=== PATIENT | male | born 1975 | race Caucasian/White ===

== ENCOUNTER 2022-03-07 20:24 | Outpatient (CLI) | payer BC, SELFPAY ==
--- NOTE | 2022-03-13 10:03 | W.PM.SLEEP ---
Sleep Study Details Details Interpreting Provider: Messi Walker MD Date of Sleep Study: 03/07/22 Sleep Study Details: STUDY TYPE:? Hospital split night study ? BMI:? 37.7 ORDERING PROVIDER:? marianna INDICATION:? Concerns about sleep apnea ? SLEEP SUMMARY:? Sleep time 3:40 a.m. 8.5, efficiency 83.9, latency 5, REM latency 57, arousal index 26.7 RESPIRATORY SUMMARY:? PERIODIC LIMB MOVEMENTS OF SLEEP:? Mean oxygen awake 94 Mean oxygen asleep 92 Low oxygen 83 1.4 minutes oxygen between 80 and 88% AHI 18.6, RDI 26.8 Supine AHI 29.9, supine REM AHI 17.8 Nonsupine AHI 0.8 nonsupine RDI 5.1 CPAP titration was attempted. At pressure of 5 REM sleep was seen but are DI remained elevated. Pressure of 60 not included REM sleep. This would be considered unsuccessful titration. No central apneas were noted CARDIAC:? EKG awake 74 asleep 70, no arrhythmias noted IMPRESSION:? Moderate obstructive sleep apnea with supine position dependency. CPAP titration was incomplete. RECOMMENDATION: AutoSet CPAP at a pressure of 5-17 with close follow-up. Weight loss is also recommended. Alternative treatments such as dental appliance could be considered if CPAP is not tolerated.
== END 2022-03-07 20:25 | disposition home or self-care (01) ==
PROVIDERS: PCP Family Medicine; Visit Provider Family Medicine
DX: G47.33 Obstructive sleep apnea (adult) (pediatric) (principal)
CPT/HCPCS: 95811

== ENCOUNTER 2022-03-30 09:24 | Outpatient (CLI) | payer BC, SELFPAY ==
[2022-03-30 12:26] LABS: Albumin* 4.3 g/dL (3.3-5.0)
[2022-03-30 12:29] LABS: Aspartate Amino Transferase* 22 U/L (12-35); Bilirubin Direct* 0.2 mg/dL (0.0-0.5); Bilirubin Total* 0.8 mg/dL (0.1-1.5); Cholesterol* 146 mg/dL (90-199); HDL Cholesterol* 35 mg/dL (>=40); LDL Cholesterol Calculated 88 mg/dL (<100); Total Protein* 7.1 g/dL (6.0-8.3); Triglycerides* 116 mg/dL (40-149)
[2022-03-30 12:30] LABS: Alanine Aminotransferase* 17 U/L (4-50); Alkaline Phosphatase* 87 U/L (40-150)
== END 2022-03-30 09:25 | disposition home or self-care (01) ==
PROVIDERS: PCP Family Medicine; Visit Provider Family Medicine
DX: E78.00 Pure hypercholesterolemia, unspecified (principal); E66.9 Obesity, unspecified
CPT/HCPCS: 80061; 80076

== ENCOUNTER 2023-03-29 21:45 | Outpatient (REF) | payer BC, SELFPAY ==
[2023-03-29 22:28] LABS: Chloride* 103 mmol/L (96-114); Sodium* 138 mmol/L (135-149)
[2023-03-29 22:31] LABS: Blood Urea Nitrogen* 22 mg/dL (5-24); Carbon Dioxide* 25 mmol/L (20-32); Estimated Glomerular Filt Rate 93 ml/min; Glucose* 109 mg/dL (60-115)
[2023-03-29 22:32] LABS: Calcium* 9.4 mg/dL (8.4-10.6)
== END 2023-03-29 21:46 | disposition home or self-care (01) ==
LOC: NPINS 21:45
PROVIDERS: PCP Family Medicine; Visit Provider Internal Medicine
DX: E78.5 Hyperlipidemia, unspecified (principal)
CPT/HCPCS: 80048

== ENCOUNTER 2024-02-10 08:33 | Outpatient (CLI) | payer BC, OTHER, SELFPAY | END 2024-02-10 08:34 | disposition home or self-care (01) | LOC: NFLDREF 02-13 07:09 | PROVIDERS: PCP Family Medicine; Referring Provider Family Medicine; Visit Provider Family Medicine | DX: E78.00 Pure hypercholesterolemia, unspecified (principal); L64.9 Androgenic alopecia, unspecified; Z12.5 Encounter for screening for malignant neoplasm of prostate; E66.9 Obesity, unspecified | CPT/HCPCS: 80053; 80061; 84443; G0103 ==

== ENCOUNTER 2024-04-30 08:39 | Outpatient (CLI) | payer BC, OTHER, SELFPAY ==
--- NOTE | 2024-04-30 10:10 | W.ANESCHARGE ---
Anesthesia Charges Start Date/Time Anesthesia Start Date: 04/30/24 Anesthesia Start Time: 09:25 Stop Date/Time Anesthesia Stop Date: 04/30/24 Anesthesia Stop Time: 10:08
--- NOTE | 2024-04-30 10:33 | W.ANESCHARGE ---
Anesthesia Charges Start Date/Time Anesthesia Start Date: 04/30/24 Anesthesia Start Time: 09:25 Stop Date/Time Anesthesia Stop Date: 04/30/24 Anesthesia Stop Time: 10:08
== END 2024-04-30 08:40 | disposition home or self-care (01) ==
LOC: OP CLINIC 08:42
PROVIDERS: PCP Family Medicine; Visit Provider Surgery
DX: K22.70 Barrett's esophagus without dysplasia (principal); K31.7 Polyp of stomach and duodenum
CPT/HCPCS: 00813; 43239; 45385; 88305; J2704; J3490

== ENCOUNTER 2025-02-11 08:21 | Outpatient (CLI) | payer BC, OTHER, SELFPAY | END 2025-02-11 08:22 | disposition home or self-care (01) | PROVIDERS: PCP Family Medicine; Referring Provider Family Medicine; Visit Provider Family Medicine | DX: Z00.00 Encounter for general adult medical examination without abnormal findings (principal); E78.00 Pure hypercholesterolemia, unspecified; Z12.5 Encounter for screening for malignant neoplasm of prostate | CPT/HCPCS: 80053; 80061; 80076; G0103 ==

== ENCOUNTER 2025-03-22 16:15 | Outpatient (RCR) | payer BC, OTHER, SELFPAY ==
--- NOTE | 2025-03-15 16:27 | PT.OPDN ---
PT [facility] Daily Note PT [facility] Outpatient Daily Note Start: 02/22/25 09:46 Freq: Status: Active Protocol: Document 03/15/25 15:15 CJT (Rec: 03/15/25 16:27 CJT [email or web address]) E-signed By Agapito Tamez, PT PT OP Daily Progress Note Visit Information Note Type Daily Note Visit Number 3 Physician Authorized eval and treat Visits Insurance Information Recert Due Date 05/23/25 Insurance Name [employer] Medical Diagnosis M25.511 - R shoulder pain M25. 552 - L hip pain Treating Diagnosis M25.511 - R shoulder pain M25. 552 - L hip pain Referring Jhoan Leung MD Subjective Preferred Name Curtis Subjective Shoulder feels better but ROM is still limited with pain at end range. L hip has been feeling much better. Pain Comments L Hip: 12/26 R shoulder: 03/28 Home Exercise Home Exercise Access Code: [email or web address] Comments URL: [email or web address] Date: 02/22/2025 Prepared by: Agapito Tamez Exercises - Clamshell with Resistance - 1 x daily - 7 x weekly - 2-3 sets - 10-20 reps - Supine Figure 4 Piriformis Stretch - 1-2 x daily - 7 x weekly - 60 seconds hold - Shoulder Internal Rotation with Resistance - 1 x daily - 7 x weekly - 2-3 sets - 20 reps - Shoulder External Rotation with Anchored Resistance - 1 x daily - 7 x weekly - 2-3 sets - 20 reps - Shoulder Extension with Resistance - 1 x daily - 7 x weekly - 2-3 sets - 20 reps Objective Other/Pertinent R Shoulder AROM Objective Flexion/Abduction/IR/ER - 120/78/L5/55 L Shoulder AROM Flexion/Abduction/IR/ER - 160/160/T9/90 R Shoulder Strength Flexion - 5/5 MMT Abduction - 4/5 MMT IR (neutral) - 5/5 MMT IR (90) - 5/5 MMT ER (neutral) - 4+/5 MMT ER (90) - 4+/5 MMT Empty Can - 4/5 MMT L Shoulder Strength - 5/5 MMT for all Posture: forward rounding of B shoulders Special Testing Crossover: positive Dewitt-Chilo: positive Whipple: negative Neers: negative Speeds: negative R Hip ROM Flexion - WNL IR/ER - 25/13 Extension - WNL L Hip ROM Flexion - WNL IR/ER - 16/24 Extension - WNL R Hip Strength Flexion - 4+/5 MMT Abduction - 4+/5 MMT Adduction - 5/5 MMT IR - 4+/5 MMT ER - 4+/5 MMT L Hip Strength Flexion - 4+/5 MMT Abduction - 4+/5 MMT Adduction - 5/5 MMT IR - 4+/5 MMT ER - 4+/5 MMT R knee Extension - 5/5 MMT R Knee Flexion - 5/5 MMT L knee Extension - 5/5 MMT L knee Flexion - 5/5 MMT R ankle DF - 5/5 MMT L ankle DF - 5/5 MMT Palpation: pt reports pain/tenderness with palpation to Gait: DTRs: Special Testing Slump: SLR: FADIR: VALENTINA: Yusra's: Piriformis: Hamstring: Pelvis: Leg Length (R/L): Patient Instructed Yes in Risks/Benefits Therapeutic Exercise Therapeutic Exercise 35 Minutes (minutes) Therapeutic Exercise UBE x 3 minutes : To Restore Shoulder IR/ER w/ RTB 2 x 20 ea Functional Status Shoulder extensions with RTB x 20 Shoulder ER in S/L, 2# 2 x 20 Shoulder ER with shoulder supported in 90 degrees abduction x 20, 2# *some discomfort noted in lateral delt Shoulder flexion with serratus activation 2 x 10, * added to HEP Manual Therapy Techniques Manual Therapy 13 Minutes (minutes) Manual Therapy STM performed to RIGHT levator scapulae, upper Techniques trapezius, pec major, pec minor, long head of the biceps tendon, biceps muscle belly, rhomboids, thoracic paraspinals, infraspinatus, teres major, teres minor, serratus anterior to reduce tissue tension and improve extensibility. Grade II-III AP/I mobilizations to R shoulder to facilitate motion Treatment Minutes Timed Code Treatment 48 Minutes Total Treatment Time 48 Billing Units Manual Therapy Units 1 Therapeutic Exercise 2 Units Assessment/Impression Assessment/ Curtis has made fair progress in his shoulder pain thus Impression far. We are now 4 weeks into therapy and pt continues to demo signs of impingement in R shoulder. At this time I would recommend MRI of the R shoulder to rule out RTC tear. Recommend continued PT services to address deficits and return pt to highest level of function. Primary Functional Sleeping, walking, riding bike Limitations Plan of Care Physical Therapy STG - To be completed in 4 weeks: Goals 1. Pt will demo 5/5 MMT for all hip motions bilaterally to provide greater strength to B hips with ambulation and reduce irritation of affected muscles/tendons of L lateral hip. 2. Pt will demo 5/5 MMT for all R shoulder motions without reproduction of pain so that he may perform all ADLs with ease. LTG - To be completed in 6 weeks: 1. Pt to be I with HEP so that they may I manage progression of symptoms. 2. Pt will report max 2/10 pain in R shoulder with all activities including sleep so that he may sleep through the night and wake well rested with reduced mental fatigue during working hours. Daily Plan of Care Continue per POC
== END 2025-06-04 09:57 | disposition home or self-care (01) ==
PROVIDERS: PCP Family Medicine; Visit Provider Family Medicine
DX: M25.552 Pain in left hip (principal); M25.511 Pain in right shoulder; Z51.89 Encounter for other specified aftercare
CPT/HCPCS: 97110; 97140; 97161

== ENCOUNTER 2025-04-06 09:56 | Outpatient (CLI) | payer BC, OTHER, SELFPAY ==
--- NOTE | 2025-04-06 10:15 | CRLHL7_ITS ---
For Patients: As a result of the Century Cures Act, medical imaging exams and procedure reports are released immediately into your electronic medical record. You may view this report before your referring provider. If you have questions, please contact your health care provider. EXAM: MRI OF THE RIGHT SHOULDER, WITHOUT CONTRAST CLINICAL INDICATION: Shoulder pain. PRIOR SURGERY: None reported. COMPARISON PLAIN FILMS: 16 February 2025. COMPARISON CROSS-SECTIONAL IMAGING STUDIES: None available at time of interpretation. TECHNICAL: Axial, sagittal oblique and coronal oblique T1, PD, PD FS and T2-weighted images. FINDINGS: GLENOHUMERAL JOINT: Effusion/Cyst: Physiologic quantity of joint fluid. No synovitis. No paralabral or periarticular cyst or ganglion. Humeral Head Articular Cartilage: No osteochondral lesion or abnormality. Glenoid Articular Cartilage: No osteochondral lesion or abnormality. Loose Bodies: No appreciable loose bodies. Capsule: No convincing evidence of adhesive capsulitis or capsular injury. OSSEOUS STRUCTURES: No fracture, marrow edema or marrow replacement process. CORACOACROMIAL ARCH: Acromial Morphology: Type 2 acromial morphology. No abnormal lateral or anterior downward sloping of the acromion. No os acromiale. No significant subacromial spur. Lateral acromial thickness is 6 mm. Acromiohumeral Interval: The acromiohumeral interval is adequately patent. At its narrowest, the interval measures 7 mm. No abnormal thickening of the coracoacromial ligament. Coracohumeral Interval: The coracohumeral interval is normal. At its narrowest, the coracohumeral interval measures greater than 10 mm. Coracoid index is 13 mm. ACROMIOCLAVICULAR JOINT REGION: AC Joint: Minor capsular edematous hypertrophy trace effusion. Ligaments: The coracoclavicular ligaments are intact. BURSAE: Subacromial-Subdeltoid: No abnormal bursal edema, thickening or bursal fluid. Subcoracoid: No abnormal bursal edema, thickening or bursal fluid. ROTATOR CUFF TENDONS AND MUSCLES AND DELTOID: Supraspinatus: Mild patchy in hazy disorganized intermediate signal tendinosis without discrete tear. No atrophy or edema. Infraspinatus: Minor tendinosis distal tendon sparing the foot plate without tear. No atrophy or edema in the muscle. Teres Minor: No tendinosis, tendon tearing, muscle atrophy or muscle edema. Subscapularis: No tendinosis, tendon tearing, muscle atrophy or muscle edema. Deltoid: No muscle atrophy or edema. BICEPS TENDON, LONG HEAD: The long head of the biceps tendon is appropriately positioned within the bicipital groove without tendon subluxation or dislocation. The biceps zeenat mechanism is intact. The biceps anchor appears grossly intact. There is no significant tendinosis or tendon tearing. GLENOID LABRUM: Within the limitations of non-arthrographic technique, the superior labrum and biceps-labral complex are intact. The anteroinferior labrum is intact without Bankart or Bankart-variant labral tear. Inferior labrum looks globular low signal indistinct and torn slightly inferiorly extruded into the axillary recess although suboptimally assessed on non arthrogram study and paucity of fluid in the joint. OTHER FINDINGS: There is no abnormality within the suprascapular or spinoglenoid notches nor within the quadrilateral space. No axillary adenopathy or mass. IMPRESSION: 1. Inferior labral tear extruded into the axillary recess. This would be better demonstrated on MR arthrogram if there is ongoing clinical concern. Remaining labrum looks intact. 2. Tendinosis without tearing supraspinatus greater than infraspinatus. 3. Mild AC DJD. Dictated by Min Serra MD @ 04/07/2025 1:41:48 PM (Electronically Signed)
== END 2025-04-06 09:57 | disposition home or self-care (01) ==
LOC: MRI 09:57
PROVIDERS: PCP Family Medicine; Visit Provider Family Medicine
DX: M25.511 Pain in right shoulder (principal); S43.401A Unspecified sprain of right shoulder joint, initial encounter; M19.011 Primary osteoarthritis, right shoulder
CPT/HCPCS: 73221

== ENCOUNTER 2025-07-28 11:12 | Emergency (ER) | payer BC, SELFPAY ==
[2025-07-28 11:44] VITALS: BP 110/78; PULSE 108; RESP 20; TEMP 36.7; O2SAT 95; BMI 31.4
--- NOTE | 2025-07-28 12:06 | CRLHL7_ITS ---
For Patients: As a result of the Century Cures Act, medical imaging exams and procedure reports are released immediately into your electronic medical record. You may view this report before your referring provider. If you have questions, please contact your health care provider. INDICATION: Left lower quadrant pain. TECHNIQUE: CT abdomen and pelvis acquired with 100 cc of Isovue 370 IV contrast. COMPARISON: 04/03/2017. FINDINGS: Lower chest: Unremarkable. Liver: Unremarkable. Normal in size and attenuation. No suspicious masses. Gallbladder and bile ducts: Unremarkable. No stones or inflammation. No biliary dilatation. Pancreas: Unremarkable. No mass or inflammation. Spleen: Unremarkable. Normal in size. No masses. Adrenal glands: Unremarkable. No nodules. Kidneys: Small left renal cyst. No suspicious masses, stones, or hydronephrosis. GI tract: Diffuse fatty infiltration of the submucosa within colon. No discrete mural thickening or pericolonic inflammation. The appendix is not visualized. Vasculature: Abdominal aorta is normal in caliber. Mesenteric arteries are patent. Lymph nodes: No lymphadenopathy. Peritoneum/Abdominal Wall: Unremarkable. No free air or significant free fluid. Pelvis: Unremarkable. Bones: Unremarkable for age. IMPRESSION: 1. No acute findings within the abdomen and pelvis. No findings to explain the patient`s left lower quadrant pain. 2. Diffuse fatty infiltration of the submucosa within the colon, which is nonspecific but can be seen with chronic inflammation. No evidence for acute colitis. Please note that all CT scans at this facility use dose modulation, iterative reconstruction, and/or weight-based dosing when appropriate to reduce radiation dose to as low as reasonably achievable. Dictated by Grey Watt MD @ 07/28/2025 12:52:28 PM (Electronically Signed)
[2025-07-28 12:18] LABS: Appearance Urine Clear (Clear)
[2025-07-28 12:28] LABS: Hematocrit* 48.1 % (37.0-53.0); Hemoglobin* 15.9 gm/dL (13.5-17.5); Immature Granulocytes Abs Auto 0.01 K/uL (0.00-0.30); Immature Granulocytes Pct Auto 0.1 %; Mean Corpuscular HGB Conc 33 gm/dL (32-36); Mean Corpuscular Hemoglobin 28 pg (26-34); Mean Corpuscular Volume 85 fL (80-100); RDW Coefficient of Variation % 12.5 % (11.5-15.5); Red Blood Count* 5.69 m/uL (4.30-5.90); White Blood Count* 7.17 K/uL (4.50-11.00)
[2025-07-28 12:32] LABS: Lymphocytes Absolute Auto 1.10 K/uL (0.90-2.90); Slide Review Reflex No
[2025-07-28 12:44] LABS: Albumin* 4.7 g/dL (3.3-5.0); Chloride* 104 mmol/L (96-114); Potassium* 4.4 mmol/L (3.6-5.1); Sodium* 139 mmol/L (135-149)
[2025-07-28 12:46] LABS: Blood Urea Nitrogen* 10 mg/dL (7-30); Creatinine* 1.1 mg/dL (0.5-1.5); Est. Creatinine Clearance* 85.57; Estimated Glomerular Filt Rate 82 ml/min
[2025-07-28 12:47] LABS: Alanine Aminotransferase* 36 U/L (4-50); Alkaline Phosphatase* 60 U/L (40-150); Anion Gap 9 mEq/L (7-15); Aspartate Amino Transferase* 29 U/L (12-35); Bilirubin Total* 1.2 mg/dL (0.1-1.5); Calcium* 9.8 mg/dL (8.4-10.6); Carbon Dioxide* 26 mmol/L (20-32); Glucose* 98 mg/dL (60-115); Total Protein* 7.8 g/dL (6.0-8.3)
[2025-07-28 13:28] VITALS: BP 115/80; PULSE 90; RESP 16; O2SAT 97
--- NOTE | 2025-07-28 13:36 | ED.ABDPAIN ---
HPI - Abdominal Pain General Date Seen: 07/28/25 Chief Complaint: Abdominal Pain Stated Complaint: Abdominal pain, diarrhea Time Seen by Provider: 07/28/25 11:32 Source: patient Mode of arrival: ambulatory Limitations: no limitations History of Present Illness HPI narrative: Patient is a 50-year-old male presenting to the emergency department for left lower quadrant abdominal pain. States for the past 3 or 4 days he has been having crampy diarrhea and left lower quadrant abdominal pain. States the pain is currently 6/10. Has never had pain like this before. Said urgent care yesterday and was told to come to the emergency department if symptoms are not improving. Denies any chest pain or shortness of breath. Denies lightheadedness or dizziness. States he has not had much of an appetite due to the discomfort in his abdomen. Denies history of heart disease, weakness, numbness. No other concerns noted at this time. States he has had previous colonoscopy was told it was normal. Has not had any fevers or chills. The only previous abdominal surgery was an appendectomy. Denies any scrotal pain. Related Data Previous Rx's ?Medication ?Instructions ?Recorded fluticasone propionate 50 1 spray intranasal BID #16 grams 12/18/24 mcg/actuation nasal spray,suspension (Flonase Allergy Relief) finasteride 1 mg tablet 1 mg PO QDAY #90 tabs 02/16/25 omeprazole 20 mg capsule,delayed 20 mg PO DAILY #90 caps 02/16/25 release rosuvastatin 20 mg tablet 20 mg PO QDAY #90 tabs 02/16/25 tirzepatide (weight loss) 12.5 12.5 mg (0.5 mL) subcut QWEEK #6 mL 06/28/25 mg/0.5 mL subcutaneous pen injector (Zepbound) Allergies Allergy/AdvReac Type Severity Reaction Status Date / Time aspirin Allergy Severe throat Verified 07/27/25 17:36 swelling Review of Systems Status of ROS Reports: 10 or more systems reviewed and unremarkable except as noted in History and below [facility] Medical History Coronary artery disease ?I25.10 - Atherosclerotic heart disease of [place] coronary artery without angina pectoris (ICD-10) Barretts esophagus ?K22.70 - Holland's esophagus without dysplasia (ICD-10) Sleep apnea in adult ?G47.30 - Sleep apnea, unspecified (ICD-10) 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 - Androgenic alopecia, unspecified (ICD-10) Hypercholesteremia ?E78.00 - Pure hypercholesterolemia, unspecified (ICD-10) Encounter for screening for severe acute respiratory syndrome coronavirus 2 (SARS-CoV-2) infection ?Z11.52 - Encounter for screening for COVID-19 (ICD-10) Surgical History History of umbilical hernia repair (06/12/11) ?Z98.890 - Other specified postprocedural states (ICD-10) ?Z87.19 - Personal history of other diseases of the digestive system (ICD-10) History of nasal polypectomy (06/12/11) ?Z98.890 - Other specified postprocedural states (ICD-10) ?Z87.09 - Personal history of other diseases of the respiratory system (ICD-10) History of endoscopy (04/28/21) ?Z98.890 - Other specified postprocedural states (ICD-10) History of appendectomy (06/12/11) ?Z90.49 - Acquired absence of other specified parts of digestive tract (ICD-10) Social History Narrative: Occupation: Route Sales Associate 3 children Walks or bikes 4 to 5 times a week What is your current living situation?: I presently have a place to live Problems where you live: no known problems In the past 12 months, utilities in danger of being shut off: no In past 12 months, lack of transportation kept you from medical appts, meetings, work, or getting things needed for daily living: no In the past 12 mos, have been you worried that your food would run out before you had money to buy more?: never true In the past 12 mos, the food you bought just didn't last and you didn't have money to buy more?: never true How often does anyone, including family, friends and others, physically hurt you: never How often does anyone, including family, friends and others, insult or talk down to you: never How often does anyone, including family, friends and others, threaten you with harm: never How often does anyone, including family, friends and others, scream or curse at you: never Exam Narrative: Exam Narrative: Const: Well-nourished, Well-developed, in mild distress Eyes: PERRL, no conjunctival injection, and symmetrical lids HENT: Atraumatic external nose and ears. Moist mucous membranes. Neck: Symmetric, trachea midline, No thyromegaly. CVS: RRR, No murmurs or gallops. Peripheral pulses 2+ and equal in all extremities RESP: Unlabored respiratory effort. Clear to auscultation bilaterally. GI: Left lower quadrant tenderness, Nondistended, No rebound or guarding. MSK:Extremities w/o deformity, Normal Active ROM Skin: Warm, Dry. No rashes or lesions. Neuro: Normal Muscle tone, No focal neurological deficits. Psych: Awake, Alert, & Oriented x3. Appropriate mood and affect. Const: Vital Signs, click to edit/add: Vital Signs - 24 hr 07/28/25 11:44 07/28/25 13:28 Temperature 98.0 F Pulse Rate [Pulse Oximeter] 108 H 90 Respiratory Rate 20 16 Blood Pressure [Ri ght Upper Arm] 110/78 115/80 Pulse Oximetry 95 97 Oxygen Delivery Me thod Room Air Room Air Course Vital Signs Vital signs: Initial Vital Signs Temperature 98.0 F 07/28/25 11:44 Temperature Source Temporal Artery Scan 07/28/25 11:44 Pulse Rate 108 H 07/28/25 11:44 Respiratory Rate 20 07/28/25 11:44 Blood Pressure 110/78 07/28/25 11:44 Blood Pressure Mean 88 07/28/25 11:44 Blood Pressure Position Sitting 07/28/25 11:44 Pulse Oximetry 95 07/28/25 11:44 Oxygen Delivery Method Room Air 07/28/25 11:44 Vital Signs Temperature 98.0 F 07/28/25 11:44 Pulse Rate 108 H 07/28/25 11:44 Respiratory Rate 20 07/28/25 11:44 Blood Pressure 110/78 07/28/25 11:44 Pulse Oximetry 95 07/28/25 11:44 Oxygen Delivery Method Room Air 07/28/25 11:44 Temperature 98.0 F 07/28/25 11:44 Pulse Rate 90 07/28/25 13:28 Respiratory Rate 16 07/28/25 13:28 Blood Pressure 115/80 07/28/25 13:28 Pulse Oximetry 97 07/28/25 13:28 Oxygen Delivery Method Room Air 07/28/25 13:28 MDM - Abdominal Pain MDM Narrative Medical decision making narrative: Patient is a 50-year-old male presenting to the emergency department for left lower quadrant abdominal pain. Differential at this time includes diverticulitis, ascending UTI, musculoskeletal pain, colitis. Seems less likely to be referred pain from testicular torsion is he is having no testicular pain. No other concerns noted at this time. Will do a CT scan of the abdomen pelvis for better evaluation. Also order urinalysis, CBC, CMP. Lab work returned showing no acute concerning abnormalities. CT scan interpreted by myself and the radiologist showed no acute concerning findings. There is some diffuse fatty infiltration of the submucosa within the colon. This is nonspecific. I did review his problem list and does states he has coronary artery disease. I spoke to him about this and he states he had a previous CT that shows some calcifications of his heart is but was told by his doctor nothing needs to be done as he has been symptoms. Seems relatively unlikely that specific left lower quadrant pain is heart related work with his history though I will do an EKG and troponin. He is agreeable to do this. EKG interpreted by myself shows no acute concerning abnormalities. Troponin is within normal limits. Considering make the symptoms I do not believe repeat troponin is necessary. Patient will be discharged at this time. Informed to follow-up with his primary care provider. Lab Data Labs: Lab Results 07/28/25 07/28/25 07/28/25 Range/Units 12:12 12:20 14:01 WBC 7.17 (4.50-11.00) K/uL RBC 5.69 (4.30-5.90) m/uL Hgb 15.9 (13.5-17.5) gm/dL Hct 48.1 (37.0-53.0) % MCV 85 (80-100) fL MCH 28 (26-34) pg MCHC 33 (32-36) gm/dL RDW Coeff of Mariel 12.5 (11.5-15.5) % Plt Count 237 (140-440) K/uL Neut % (Auto) 74.4 H (42.0-72.0) % Lymph % (Auto) 15.5 L (20-44) % [place] % (Auto) 7.1 (0.0-11.0) % Eos % (Auto) 2.6 (0.0-7.0) % Baso % (Auto) 0.3 (0.0-3.0) % Neut # (Auto) 5.30 (1.7-7.0) K/uL Lymph # (Auto) 1.10 (0.90-2.90) K/uL [place] # (Auto) 0.50 (0.00-0.90) K/UL Eos # (Auto) 0.19 (0.00-0.50) K/uL Baso # (Auto) 0.02 (0.00-0.30) K/uL Abs Immat Gran (auto) 0.01 (0.00-0.30) K/uL Imm/Tot Granulo (auto) 0.1 % Sodium 139 (135-149) mmol/L Potassium 4.4 (3.6-5.1) mmol/L Chloride 104 (96-114) mmol/L Carbon Dioxide 26 (20-32) mmol/L Anion Gap 9 (7-15) mEq/L BUN 10 (7-30) mg/dL Creatinine 1.1 (0.5-1.5) mg/dL Estimated Creat Clear 85.57 Estimated GFR 82 ml/min Glucose 98 (60-115) mg/dL Calcium 9.8 (8.4-10.6) mg/dL Total Bilirubin 1.2 (0.1-1.5) mg/dL AST 29 (12-35) U/L ALT 36 (4-50) U/L Alkaline Phosphatase 60 (40-150) U/L POC Troponin I High Sensi < 2.9 L (2.9-28.0) pg/mL Total Protein 7.8 (6.0-8.3) g/dL Albumin 4.7 (3.3-5.0) g/dL Urine Color Yellow (Yellow) Urine Appearance Clear (Clear) Urine pH 5.5 (5.0-8.5) Ur Specific [place] 1.025 (1.000-1.030) Urine Protein Negative (Negative) Urine Glucose (UA) Negative (Negative) Urine Ketones Trace A (Negative) Urine Blood Negative (Negative) Urine Nitrite Negative (Negative) Urine Bilirubin Negative (Negative) Urine Urobilinogen 0.2 (0.2-1.0) Ur Leukocyte Esterase Negative (Negative) Urine RBC 0-2 (0-2) Urine WBC 0-2 (0-5) Ur Squamous Epith Cells Few (None-Few) Urine Bacteria None (None) Imaging Data CT scan abdomen pelvis: Attestation: I have reviewed the pertinent imaging results. Radiologist's impression: 1. No acute findings within the abdomen and pelvis. No findings to explain the patient`s left lower quadrant pain. 2. Diffuse fatty infiltration of the submucosa within the colon, which is nonspecific but can be seen with chronic inflammation. No evidence for acute colitis. Please note that all CT scans at this facility use dose modulation, iterative reconstruction, and/or weight-based dosing when appropriate to reduce radiation dose to as low as reasonably achievable. Dictated by Grey Watt MD @ 07/28/2025 12:52:28 PM ECG Data Attestation: I personally reviewed and interpreted this ECG as follows: Prior ECG tracings: not available for review Interpretation: Normal sinus rhythm with a rate of 36 beats per minute, normal intervals, normal axis, no ST or T-wave abnormalities. Discharge Plan Discharge Clinical Impression: Abdominal pain, left lower quadrant Patient Disposition: Home, Self-Care Condition: Stable Instructions: Abdominal Pain (ED) Additional Instructions: I recommending a bland and clear liquid diet over the next few days to help give yourself bowel rest and improve your symptoms. Return to emergency department for new or worsening symptoms. I recommend following up with the primary care provider if symptoms are not improving. You may need another colonoscopy if the pain persist Prescriptions: No Action finasteride 1 mg tablet 1 mg PO QDAY Qty: 90 3RF omeprazole 20 mg capsule,delayed release(DR/EC) 20 mg PO DAILY Qty: 90 3RF rosuvastatin 20 mg tablet 20 mg PO QDAY Qty: 90 3RF fluticasone propionate [Flonase Allergy Relief] 50 mcg/actuation spray,suspension 1 spray intranasal BID Qty: 16 0RF Rx Instructions: administer into each nostril Zepbound 12.5 mg/0.5 mL pen injector 12.5 mg subcut QWEEK Qty: 6 1RF Follow Up/Referrals: Jhoan Lamar MD [Primary Care Provider, Family Practice] Stand Alone Forms: [facility] Info Instructions
== END 2025-07-28 14:37 | disposition home or self-care (01) ==
PROVIDERS: Emergency Provider Student in an Organized Health Care Education/Training Program; PCP Family Medicine
DX: R10.32 Left lower quadrant pain (principal)
CPT/HCPCS: 36415; 74177; 80053; 81001; 84484; 85025; 93005; 99284; 99285; Q9967